=== PATIENT | female | born 1945 | race Caucasian/White ===

== ENCOUNTER 2017-08-14 16:37 | Inpatient (IN) | payer MEDICARE, OTHER ==
[~2017-08-14] VITALS: Ht 157.5 cm; Wt 73.5 kg
[2017-08-14] MEDS ORDERED: CARV12.52 PO (17:10)
[2017-08-14] MEDS ORDERED: SENN-167 PO (17:10)
[2017-08-14] MEDS ORDERED: ICOS1CAP PO (17:10)
[2017-08-14] MEDS ORDERED: ERGO500014 PO (17:10)
[2017-08-14] MEDS ORDERED: FEBU40TA PO (17:10)
[2017-08-14] MEDS ORDERED: TRAM50TA2 PO (17:10)
[2017-08-14] MEDS ORDERED: GABA-532 PO (17:10)
[2017-08-14] MEDS ORDERED: ACET-2605 PO (17:10)
[2017-08-14] MEDS ORDERED: FLUT1DIS27 INH (17:10)
[2017-08-14] MEDS ORDERED: CALC-555 GT (17:10)
[2017-08-14] MEDS ORDERED: CLON0.1T PO (17:10)
[2017-08-14] MEDS ORDERED: DEXL60CA3 PO (17:10)
[2017-08-14] MEDS ORDERED: HYDR-4077 PO (17:10)
[2017-08-14] MEDS ORDERED: LINA5TAB PO (17:10)
[2017-08-14] MEDS ORDERED: NATE120T6 PO (17:10)
[2017-08-14 17:13] LABS: BASOPHILS # (AUTO) 0.1 K/uL (0.0-8.0); BASOPHILS % (AUTO) 1.7 % (0.0-2.0); EOSINOPHILS # (AUTO) 0.2 K/uL (0.0-0.7); EOSINOPHILS % (AUTO) 3.2 % (0.0-7.0); HEMOGLOBIN 9.1 g/dL (10.9-14.3); LYMPHOCYTES # (AUTO) 1.7 K/uL (20.0-40.0); LYMPHOCYTES % (AUTO) 30.1 % (20.5-51.5); MEAN CORPUSCULAR HGB CONC 34 g/dL (32.3-35.6); MEAN CORPUSCULAR VOLUME 86.4 fL (75.5-95.3); MONOCYTES # (AUTO) 0.5 K/uL (2.0-10.0); MONOCYTES % (AUTO) 8.7 % (0.0-11.0); NEUTROPHILS # (AUTO) 3.2 K/uL (1.8-8.9); NEUTROPHILS % (AUTO) 56.3 % (38.5-71.5); PLATELET COUNT (AUTO) 173 K/uL (179-408); RED BLOOD CELL COUNT(AUTO) 3.13 MIL/uL (3.63-4.92); WHITE BLOOD COUNT (AUTO) 5.7 K/uL (3.8-11.8)
[2017-08-14 17:16] LABS: CREATININE 3.6 mg/dL (0.6-1.3); POTASSIUM 3.6 mmol/L (3.5-5.1)
[2017-08-14 17:22] LABS: BILIRUBIN,DIRECT 0.1 mg/dL (0.0-0.2); BILIRUBIN,TOTAL 0.3 mg/dL (0.2-1.0); TOTAL PROTEIN, SERUM 7.1 g/dL (6.4-8.2)
--- NOTE | 2017-08-14 17:30 | NUR ---
PT IS IN ROOM #2A. DR HASSAN EVALUATED THE PT.
[2017-08-14] MEDS: ENALAPRILAT DIHYDRATE 1.25 MG/1 ML VIAL IV ONE ×2 (17:31→17:33)
[2017-08-14] MEDS ORDERED: hydrALAZINE HCL 20 MG/1 ML VIAL IV ONE (17:45)
[2017-08-14] MEDS ORDERED: hydrALAZINE HCL 20 MG/1 ML VIAL ONE (17:46)
[2017-08-14] MEDS ORDERED: CLONIDINE HCL 0.1 MG TABLET PO ONE (18:00)
[2017-08-14] MEDS ORDERED: CLONIDINE HCL 0.1 MG TABLET ONE (18:31)
[2017-08-14] MEDS ORDERED: ONDANSETRON IV *ER 4 MG/2 ML VIAL IV ONE (19:00)
[2017-08-14] MEDS ORDERED: MORPHINE SULFATE 4 MG/1 ML DISP.SYRIN IV ONE (19:00)
--- NOTE | 2017-08-14 19:12 | NUR ---
REPORT WAS GIVEN TO SANDY JOHNSON.
--- NOTE | 2017-08-14 19:58 | NUR ---
Assisted patient to bathroom.
--- NOTE | 2017-08-14 20:22 | NUR ---
Mirella foley in [facility] - 08/14/17 at 2102 by THERESA Passed report to Cassia Duenas
--- NOTE | 2017-08-14 20:22 | NUR ---
Passed report to Tamy DELGADO Tele.
[2017-08-14] MEDS ORDERED: ACETAMINOPHEN/CODEINE 300-30 MG TABLET PO PRN ×2 (20:45→22:00)
[2017-08-14] MEDS ORDERED: ACETAMINOPHEN/CODEINE 300-30 MG TABLET ONE (20:48)
[2017-08-14 21:00] VITALS: BP 189/79
--- NOTE | 2017-08-14 21:00 | NUR ---
NSG: pt received a/o x 4, fr er via gurney with dx of uncontrolled hypertension. tele, SR. denies sob, n/v. daughter at the bedside. call light within reach. bed alarm on.
[2017-08-14] MEDS ORDERED: INSULIN REGULAR, HUMAN 300 UNIT/3 ML VIAL SQ PRN (22:00)
[2017-08-14] MEDS ORDERED: DEXTROSE 50% 50 ML DISP.SYRIN IV PRN (22:00)
[2017-08-14] MEDS ORDERED: ONDANSETRON 4 MG/2 ML VIAL IV PRN (22:00)
[2017-08-14] MEDS ORDERED: CLONIDINE HCL 0.2 MG TABLET PO PRN (22:00)
[2017-08-14] MEDS ORDERED: ZOLPIDEM 5 MG TABLET PO PRN (22:00)
[2017-08-14] MEDS: BLOOD SUGAR DIAGNOSTIC 1 EACH STRIP VI SCH (22:18)
--- NOTE | 2017-08-14 22:18 | NUR ---
nsg: acu check is 143mg/dL. pt and daughter refused insulin coverage.
[2017-08-14 22:57] VITALS: BP 173/74
[2017-08-14] MEDS: HEPARIN SODIUM,PORCINE 5,000 UNITS/ML VIAL SQ SCH (23:01)
[2017-08-15] VITALS (7 sets, daily range): BP systolic 106–161; BP diastolic 58–84
--- NOTE | 2017-08-15 00:22 | NUR ---
NSG: pt and daughter refused nitroglycerin bec of possible headache. advised regarding importance and benefit of this medication. pt and daughter will talk to md in am.
--- NOTE | 2017-08-15 05:53 | NUR ---
nsg: all needs attended. denies discomfort at this time. cont to monitor v/s including bp. tele, SR.
[2017-08-15] MEDS: BLOOD SUGAR DIAGNOSTIC 1 EACH STRIP VI SCH ×4 (06:35→21:12)
[2017-08-15] MEDS: NITROGLYCERIN OINT 1 GM PACKET TP SCH ×4 (06:37→17:14)
[2017-08-15 07:28] LABS: BASOPHILS # (AUTO) 0.1 K/uL (0.0-8.0); BASOPHILS % (AUTO) 1.4 % (0.0-2.0); EOSINOPHILS # (AUTO) 0.2 K/uL (0.0-0.7); EOSINOPHILS % (AUTO) 3.6 % (0.0-7.0); HEMATOCRIT 25.2 % (31.2-41.9); HEMOGLOBIN 8.5 g/dL (10.9-14.3); LYMPHOCYTES # (AUTO) 1.7 K/uL (20.0-40.0); LYMPHOCYTES % (AUTO) 37.2 % (20.5-51.5); MEAN CORPUSCULAR HEMOGLOBIN 29.4 uug (24.7-32.8); MEAN CORPUSCULAR HGB CONC 34 g/dL (32.3-35.6); MEAN CORPUSCULAR VOLUME 87.2 fL (75.5-95.3); MONOCYTES # (AUTO) 0.4 K/uL (2.0-10.0); MONOCYTES % (AUTO) 9.1 % (0.0-11.0); NEUTROPHILS # (AUTO) 2.3 K/uL (1.8-8.9); NEUTROPHILS % (AUTO) 48.7 % (38.5-71.5); PLATELET COUNT (AUTO) 151 K/uL (179-408); RED BLOOD CELL COUNT(AUTO) 2.89 MIL/uL (3.63-4.92); WHITE BLOOD COUNT (AUTO) 4.7 K/uL (3.8-11.8)
[2017-08-15] MEDS ORDERED: PANTOPRAZOLE SODIUM 40 MG TABLET.DR PO SCH (07:30)
[2017-08-15 07:40] LABS: BILIRUBIN,TOTAL 0.2 mg/dL (0.2-1.0); CREATININE 3.7 mg/dL (0.6-1.3); MAGNESIUM 1.5 mg/dL (1.8-2.4); PHOSPHOROUS 5.3 mg/dL (2.5-4.9); POTASSIUM 3.5 mmol/L (3.5-5.1); TOTAL PROTEIN, SERUM 6.4 g/dL (6.4-8.2)
[2017-08-15] MEDS: NATEGLINIDE 60 MG TABLET PO SCH ×3 (08:05→17:12)
--- NOTE | 2017-08-15 08:27 | NUR ---
PATIENT AM BS 152, REFUSING INSULIN COVERAGE
[2017-08-15] MEDS: FLUTICASONE/VILANTEROL 1 EACH BLST.W.DEV INH SCH (09:00)
[2017-08-15] MEDS ORDERED: Medication Not On Formulary EA (Icosapent Ethyl (Vascepa) 1 GM) PO SCH (09:00)
[2017-08-15] MEDS: CALCIUM CARB/VITAMIN D 500MG-200UNITS TABLET PO SCH ×3 (09:02→17:12)
[2017-08-15] MEDS: LINAGLIPTIN 5 MG TABLET PO SCH (09:02)
[2017-08-15] MEDS: CARVEDILOL 25 MG TABLET PO SCH ×2 (09:05→17:14)
[2017-08-15] MEDS: SENNOSIDES 1 TABLET PO PRN (09:13)
[2017-08-15] MEDS: METOLAZONE 2.5 MG TABLET PO SCH (10:23)
[2017-08-15] MEDS: ACETAMINOPHEN/CODEINE 300-30 MG TABLET PO PRN (10:23)
[2017-08-15] MEDS: HEPARIN SODIUM,PORCINE 5,000 UNITS/ML VIAL SQ SCH ×2 (10:25→21:22)
[2017-08-15] MEDS: hydrALAZINE HCL 50 MG TABLET PO SCH ×2 (14:00→22:00)
[2017-08-15] MEDS: PATIENT MAY USE OWN MED- MD OK PO SCH (17:13)
--- NOTE | 2017-08-15 18:35 | NUR ---
PATIENT CALLED AND STATED FEELING LIKE THROWING UP, UPON ENTRY TO ROOM PATIENT IN BED WITH EYES CLOSED. STATES FEELING DIZZY AND WARM. PATIENT DIAPHORETIC. DAUGHTER STATES SHE JUST AMBULATED TO RESTROOM. BP CHECKED 106/58 HR 66. NITRO PATCH REMOVED. ZOFRAN GIVEN, WILL CONTINUE TO MONITOR
--- NOTE | 2017-08-15 20:00 | NUR ---
Received this patient awake in bed, no SOB denies chest pain. Patient stated she's still experiencing some dizziness. Vital signs WNL Sinus rhythm on the monitor. Daughter in room.
[2017-08-15 20:12] LABS: THYROID STIMULATING HORMONE 6.55 mIU/mL (0.358-3.740)
[2017-08-15] MEDS ORDERED: GABAPENTIN 100 MG CAPSULE PO SCH (21:00)
--- NOTE | 2017-08-15 22:30 | NUR ---
Pt BLOOD SUGAR WAS 147 @ 2100, DAUGHTER SITTING AT BEDSIDE STATED, "SHE DIDN'T EAT THE DINNER YOU SERVED SO I GAVE HER A TURKEY SANDWICH FROM [employer] AN HOUR AGO." Pt AND DAUGHTER REFUSED REGULAR INSULIN STATING, "SHE IS NOT ON INSULIN AT HOME AND GIVING HER INSULIN WILL DROP HER BLOOD SUGAR TOO LOW." BLOOD PRESSURE @ 2215 WAS 118/65, Pt AND DAUGHTER BOTH REFUSED HYDRALAZINE MED STATING, "118/65 IS LOW FOR HER, WE DON'T WANT TO MAKE HER BLOOD PRESSURE DROP TOO LOW." WILL CONTINUE TO MONITOR Pt.
[2017-08-16] MEDS: hydrALAZINE HCL 50 MG TABLET PO SCH ×2 (00:20→13:46)
--- NOTE | 2017-08-16 00:20 | NUR ---
REPORT ENDORSED FROM PREVIOUS NURSE PATIENT REFUSED HER SCHEDULED HYDRALAZINE @2200, ASSESSED BP FOR MIDNIGHT MEDS BP 149/62. SCHEDULED NITROBID HELD DUE TO SBP < 150. PATIENT REQUEST TO TAKE HER 2200 HYDRALAZINE NOW SINCE SHE DID NOT TAKE IT AT 2200. MEDS GIVEN PER PATIENT'S REQUEST
[2017-08-16 00:42] VITALS: BP 149/62
[2017-08-16 04:00] VITALS: BP 119/53
--- NOTE | 2017-08-16 05:49 | NUR ---
PATIENT SLEPT WELL THROUGH THE NIGHT, BP UNDER CONTROL LAST READING AT 119/53, NO C/O PAIN OR ANY DISTRESS ON THIS SHIFT. FAMILY AT BEDSIDE WITH PATIENT, NO FURTHER CONCERNS AT THIS TIME. ALL NEEDS MET
[2017-08-16] MEDS: NITROGLYCERIN OINT 1 GM PACKET TP SCH ×3 (06:00→12:00)
[2017-08-16] MEDS: ACETAMINOPHEN/CODEINE 300-30 MG TABLET PO PRN (06:26)
[2017-08-16] MEDS: BLOOD SUGAR DIAGNOSTIC 1 EACH STRIP VI SCH ×3 (06:30→16:16)
[2017-08-16] MEDS: NATEGLINIDE 60 MG TABLET PO SCH ×3 (06:58→16:13)
[2017-08-16] MEDS: SENNOSIDES 1 TABLET PO PRN (06:59)
[2017-08-16] MEDS ORDERED: PATIENT MAY USE OWN MED- MD OK PO SCH ×2 (07:00→14:00)
[2017-08-16 07:14] LABS: BASOPHILS # (AUTO) 0.1 K/uL (0.0-8.0); BASOPHILS % (AUTO) 1.3 % (0.0-2.0); EOSINOPHILS # (AUTO) 0.2 K/uL (0.0-0.7); EOSINOPHILS % (AUTO) 3.4 % (0.0-7.0); HEMATOCRIT 24.8 % (31.2-41.9); HEMOGLOBIN 8.2 g/dL (10.9-14.3); LYMPHOCYTES # (AUTO) 1.9 K/uL (20.0-40.0); LYMPHOCYTES % (AUTO) 37.7 % (20.5-51.5); MEAN CORPUSCULAR HEMOGLOBIN 28.5 uug (24.7-32.8); MEAN CORPUSCULAR HGB CONC 33 g/dL (32.3-35.6); MEAN CORPUSCULAR VOLUME 86.3 fL (75.5-95.3); MONOCYTES # (AUTO) 0.4 K/uL (2.0-10.0); MONOCYTES % (AUTO) 8.3 % (0.0-11.0); NEUTROPHILS # (AUTO) 2.4 K/uL (1.8-8.9); NEUTROPHILS % (AUTO) 49.3 % (38.5-71.5); PLATELET COUNT (AUTO) 149 K/uL (179-408); RED BLOOD CELL COUNT(AUTO) 2.87 MIL/uL (3.63-4.92)
--- NOTE | 2017-08-16 07:35 | NUR ---
Received pt sleeping in bed, no apparent s/s of pain, distress, discomfort or SOB. Daughter is by bedside. Bed at lowest position for safety and call light within reach for assistance.
[2017-08-16 07:41] LABS: BILIRUBIN,TOTAL 0.3 mg/dL (0.2-1.0); CREATININE 3.8 mg/dL (0.6-1.3); MAGNESIUM 1.5 mg/dL (1.8-2.4); PHOSPHOROUS 5.1 mg/dL (2.5-4.9); POTASSIUM 3.5 mmol/L (3.5-5.1); TOTAL PROTEIN, SERUM 6.2 g/dL (6.4-8.2)
[2017-08-16] MEDS: LINAGLIPTIN 5 MG TABLET PO SCH (08:47)
[2017-08-16] MEDS: CALCIUM CARB/VITAMIN D 500MG-200UNITS TABLET PO SCH ×3 (08:47→16:15)
[2017-08-16] MEDS: METOLAZONE 2.5 MG TABLET PO SCH (08:47)
[2017-08-16] MEDS: CARVEDILOL 25 MG TABLET PO SCH (08:48)
[2017-08-16] MEDS: PATIENT MAY USE OWN MED- MD OK PO SCH ×3 (08:50→16:13)
[2017-08-16] MEDS: HEPARIN SODIUM,PORCINE 5,000 UNITS/ML VIAL SQ SCH (08:50)
[2017-08-16] MEDS: FLUTICASONE/VILANTEROL 1 EACH BLST.W.DEV INH SCH (09:00)
[2017-08-16] MEDS ORDERED: Metolazone PO (11:29)
[2017-08-16] MEDS ORDERED: CARV25TA2 PO (11:29)
[2017-08-16] MEDS ORDERED: SPIR25TA4 PO (11:29)
[2017-08-16] MEDS ORDERED: CLON0.2T12 PO (11:29)
[2017-08-16 11:57] VITALS: BP 124/45
--- NOTE | 2017-08-16 12:28 | NUR ---
Pt and daughter refused Insulin as ordered, as per sliding scale
[2017-08-16] MEDS ORDERED: EPOETIN ALFA 10,000 UNITS/ML VIAL SQ ONE (12:45)
[2017-08-16 16:11] VITALS: BP 135/61
--- NOTE | 2017-08-16 17:00 | NUR ---
Pt was discharge with orders. Pt left in stable condition, compliant with medications except insulin. Pt is in no immediate s/s of SOB, pain, distress or discomfort. Pt is leaving with daughter and guided down to lobby in a wheelchair accompanied by charge nurse. Personal medications given to the daughter. Discharge papers sign by daughter. Medication faxed to the pharmacy preferred by family.
[2017-08-17 09:12] LABS: CORTISOL AM 3.1 ug/dL (6.2-19.4)
[2017-08-18] MEDS ORDERED: ERGOCALCIFEROL 50,000 UNIT CAPSULE PO SCH (09:00)
[2017-08-18 13:06] LABS: RENIN 0.232 ng/mL/hr (0.167-5.380)
[2017-08-20 06:06] LABS: ALDOSTERONE 5.1 ng/dL (0.0-30.0)
== END 2017-08-16 17:00 | disposition home or self-care (01) | DRG 304 ==
LOC: ER 16:40 → TELE 20:24
PROVIDERS: ADMIT Internal Medicine; ATTEND Internal Medicine
DX: I16.0 Hypertensive urgency (principal); N17.0 Acute kidney failure with tubular necrosis; J98.11 Atelectasis; E11.22 Type 2 diabetes mellitus with diabetic chronic kidney disease; E11.40 Type 2 diabetes mellitus with diabetic neuropathy, unspecified; I12.9 Hypertensive chronic kidney disease with stage 1 through stage 4 chronic kidney disease, or unspecified chronic kidney disease; D63.1 Anemia in chronic kidney disease; J44.9 Chronic obstructive pulmonary disease, unspecified; Z91.11 Patient's noncompliance with dietary regimen; K02.9 Dental caries, unspecified; K21.9 Gastro-esophageal reflux disease without esophagitis; Z86.73 Personal history of transient ischemic attack (TIA), and cerebral infarction without residual deficits; E78.5 Hyperlipidemia, unspecified; Z79.899 Other long term (current) drug therapy; R51 Headache; Z79.84 Long term (current) use of oral hypoglycemic drugs; N18.3 Chronic kidney disease, stage 3 (moderate)
CPT/HCPCS: 36415; 70030-TC; 71045; 82088; 82533; 83735; 83970; 84100; 84244; 84443; 85025; 85730; 93005; A4663; C1758; J0360; J0885; J1644; J1815; J2405